=== PATIENT | female | born 1945 | race Caucasian/White ===

== ENCOUNTER 2016-07-10 18:35 | Emergency (ER) | payer MEDICARE, OTHER, BC ==
[~2016-07-10] VITALS: Ht 167.6 cm; Wt 78.0 kg
[~2016-07-10 18:35] MED LIST: AMLO-147 PO; HYDR-906 PO
[2016-07-10 18:44] VITALS: Ht 167.6 cm; Wt 78.0 kg
[2016-07-10] MEDS ORDERED: ONDANSETRON (ODT) 4 MG TAB ODT STA (19:46)
--- NOTE | 2016-07-10 19:56 | RADRPT ---
PROCEDURE: XR Ankle. CLINICAL INDICATION: Right ankle pain, concern for fracture TECHNIQUE: 3 views of the right ankle were performed. COMPARISON: None. FINDINGS: There is an acute obliquely oriented mildly displaced distal fibular fracture just above the level o f the ankle mortise. Questionable small impaction fracture at the anterior tibial plafond is noted. There is some widening of the tibiotalar joint space anteriorly on the lateral radiograph. The medial mortise appears normal on this nonstressed view. There is moderate lateral soft tissue swelling. There is calcaneal enthesopathy. IMPRESSION: 1. Acute obliquely oriented mildly displaced distal fibular fracture just above the level of the ank le mortise as above. Questionable small impaction fracture at the anterior tibial plafond. 2. Mild lateral soft tissue swelling. 3. Osteopenia. RPTAT: [facility] .Miller Abdalla MD, MD Date Time Electronically viewed and signed by .Miller Abdalla MD, on 07/10/2016 19:56 .K/
[2016-07-10] MEDS ORDERED: morphine 10 MG INJ IM ONE (20:00)
[2016-07-10] MEDS ORDERED: HYDROCODONE/APAP (5/325) TAB PO ONE (20:00)
--- NOTE | 2016-07-10 20:31 | ERD ---
ER Documentation Chief Complaint Date/Time DATE: 07/10/16 TIME: 20:25 Chief Complaint R ankle fracture HPI This is a 70-year-old female that presents to the emergency department brought in by EMS from [facility]. The patient had a mechanical trip and fall while using her walker and attempting to move into a chair roughly 8 hours prior to arrival. The patient had radiographic imaging on an outpatient basis that indicated she had a right ankle fracture. She was sent to the emergency department to be further evaluated. She denies any numbness or tingling of her right lower extremity but states she is experiencing a significant pain that is exacerbated by movement, 10 out of 10 in intensity. She did not hit her head or lose consciousness. ROS All systems reviewed and are negative except as per history of present illness. Medications Home Meds Discontinued Scripts Hydrocodone/Acetaminophen (Alton 5-325 Tablet) 1 Each Tablet, 1 EACH PO Q4 for PAIN, #30 TAB Prov:SHENG ROSENBERG 04/22/16 Amlodipine Besylate* (Amlodipine Besylate*) 10 Mg Tablet, 10 MG PO DAILY for 30 Days, TAB Prov:SHENG ROSENBERG 04/22/16 Allergies Allergies: Coded Allergies: No Known Allergy (Unverified , 07/10/16) PMhx/Soc History of Surgery: No Anesthesia Reaction: No Hx Neurological Disorder: No Hx Respiratory Disorders: No Hx Cardiac Disorders: No Hx Psychiatric Problems: No Hx Miscellaneous Medical Probl: Yes (Uterine CA) Hx Alcohol Use: No Hx Substance Use: No Hx Tobacco Use: No Smoking Status: Never smoker Physical Exam Vitals Vital Signs Date Time Temp Pulse Resp B/P Pulse Ox O2 Delivery O2 Flow Rate FiO2 07/10/16 18:44 97.8 86 20 124/66 99 Physical Exam Constitutional:Well-developed. Well-nourished. HEENT:Normocephalic. Atraumatic.Pupils were equal round reactive to light. Moist mucous membranes.No tonsillar exudates. Neck: No nuchal rigidity. No lymphadenopathy. No posterior cervical spine tenderness or step-offs. Respiratory: Not using accessory muscles of respiration.Lungs were clear to auscultation bilaterally. No rhonchi. No rales. No wheezing. Cardiovascular: Regular rate regular rhythm.No murmurs. No rubs were appreciated.S1, S2 normal. Distal pulses are palpable 2+ bilaterally. GI: Abdomen was soft. Nontender. Non Distended. No pulsatile abdominal masses or bruits. No rebound. No guarding. Bowel sounds were present and normal. Muscle skeletal: Full range of motion of both the upper and lower extremities bilaterally.Normal muscle tone.No assymetrical calf tenderness or swelling. Tenderness over the right distal lower extremity on the anterior aspect. No tenderness over the right medial or lateral malleolus. No soft tissue swelling and no ecchymosis of the right lower extremity. Patient unable to dorsiflex plantarflex or bear weight on the right lower extremity Skin: No petechia, no purpura. No lesions on the palms or the soles of the feet. No maculopapular rash. NEURO: Patient was alert, awake, orientated x3.No facial droop. Gait not observed as patient is unable to ambulate due to significant amount of pain. Speech had regular rate and rhythm. No focal neurological deficits. Results 24 hrs Current Medications Medications (Trade) Dose Ordered Sig/Selvin Route PRN Reason Start Time Stop Time Status Last Admin Dose Admin Acetaminophen/ Hydrocodone Bitart (Al[place] (5/325)) 1 tab ONCE ONCE PO 07/10/16 20:00 07/10/16 20:01 DC Morphine Sulfate (morphine) 4 mg ONCE ONCE IM 07/10/16 20:00 07/10/16 20:01 DC Ondansetron HCl (Zofran Odt) 4 mg ONCE STAT ODT 07/10/16 19:46 07/10/16 19:48 DC Procedures/MDM This patient presented to the emergency department with a known right ankle fracture. Radiographic imaging was repeated in the emergency department and reviewed by myself. 3 view radiograph the right ankle indicated the followin. Acute obliquely oriented mildly displaced distal fibular fracture just above the level of the ankle mortise as above. Questionable small impaction fracture at the anterior tibial plafond. 2. Mild lateral soft tissue swelling. 3. Osteopenia. Compartments were soft. The patient received intramuscular morphine and Zofran for analgesic control and a short leg posterior splint was placed on the right. After the patient was reevaluated by myself is neurovascularly intact. The patient was discharged home in fair condition. They were instructed to return to the emergency department at any time if there was any worsening of their condition. The patient stated they would follow up with their PCP in the next 24-48 hours to initiate a suitable medication regimen under the care of their PCP as well as to allow their PCP to monitor any drug reactions. The patient was discharged home with prescriptions after they gave informed consent to the new medication. They were also fully informed by myself on the adverse effects and adverse drug interactions in order to provide adequate safeguards to prevent possible adverse reactions to medications. Departure Diagnosis: Primary Impression: Closed fibular fracture Encounter type: initial encounter Fracture morphology: oblique Fracture alignment: displaced Laterality: right MARISOL HENDRIX Jul 10, 2016 20:30
[2016-07-10] MEDS ORDERED: HYDR-906 PO (20:34)
[2016-07-10 21:07] VITALS: TEMP 98.4
[2016-07-10 23:17] VITALS: BP 156/107; PULSE 78; RESP 16
== END 2016-07-10 23:20 | disposition home or self-care (01) ==
LOC: E/R 18:35
DX: S82.431A Displaced oblique fracture of shaft of right fibula, initial encounter for closed fracture (principal); W01.0XXA Fall on same level from slipping, tripping and stumbling without subsequent striking against object, initial encounter; Y92.9 Unspecified place or not applicable; Z85.42 Personal history of malignant neoplasm of other parts of uterus
CPT/HCPCS: 29515; 73610; 96372; 99284; J2270